=== PATIENT | female | born 1950 | race Caucasian/White ===

== ENCOUNTER 2016-04-01 08:06 | Inpatient (IN) | payer OTHER ==
[2016-04-01] MEDS ORDERED: CEFAZOLIN 1 GM VIAL ONE ×2 (08:26→14:20)
[2016-04-01] MEDS ORDERED: FENTANYL 100 MCG/2 ML VIAL IV PRN ×2 (08:33)
[2016-04-01] MEDS ORDERED: MEPERIDINE 25 MG/ML TUBEX IV PRN (08:33)
[2016-04-01] MEDS ORDERED: ONDANSETRON HCL 4 MG/2 ML VIAL IV PRN ×2 (08:33→14:59)
[2016-04-01] MEDS ORDERED: ONDANSETRON HCL 4 MG ODT TAB PO PRN (08:33)
[2016-04-01] MEDS ORDERED: LABETALOL 20 MG/4 ML SYRINGE IV PRN (08:33)
[2016-04-01] MEDS ORDERED: hydrALAZINE 20 MG/ML VIAL IV PRN (08:33)
[2016-04-01] MEDS ORDERED: HYDROmorphone 1 MG INJECTION IV PRN ×2 (08:33)
--- NOTE | 2016-04-01 09:40 | HIM.ANES ---
Anesthesia Evaluation & Plan Diagnoses: POSTMENOPAUSAL BLEEDING (04/01/16) Consented Procedure: TOTAL LAPAROSCOPIC HYSTERECTOMY AND BILATERAL SALPINGO- OOPHORECTOMY AND CYSTOSCOPY - Focused Review of Systems Cardiac History: Yes: Hx Hypertension, Hx Cardiac Disorders, Hx Congestive Heart Failure (PER PCP) HEENT: Yes: Hx Vision Problem (PRESCRIPTION ), Other HEENT Problems Hx Other HEENT Surgery: T&A 1956 Hx Other HEENT Problems: RHINNITIS SEASONAL ALLERGIES Respiratory: Yes: Hx Asthma (DOES NOT REQUIRE INHALERS), Hx Snoring Gastrointestinal: Yes: Hx Gastrointestinal Disorders, Hx Colonoscopy (NORMAL), Hx Endoscopy Neurological/Musculoskeletal: Yes: Hx Back Pain, Hx Numbness, Tingling, Weakness in Arms & Legs, Hx Neurological Disorders Other Neurological Problems: PERIPHERAL NEUROPATHY Psychological: Yes Hx Anxiety, Yes Hx Depression, Yes Hx Mental/Emotional Disorders Endocrine: Yes: Hx Hypothyroidism Blood/Autoimmune: Yes: Hx Anemia No: Hx AIDS, Hx Hepatitis (type) Smoking Status: Never smoker Hx Chest Xray (date): Yes (03/16/2016 NO ACUTE FINDINGS) Surgical History: Yes: T&A, Cholecystectomy (2008), Knee (LT TKA 2010, RT TKA) Other Surgical History: T&A 195610/12/2015 HYSTEROSCOPY D&C - Focused Physical Exam NPO since: 03/31/161999 Mallampati: Class II Thyromental Distance: Greater than 3 Neck: Full Range of Motion Dental: Removable Dental Work Cardiovascular/Chest: Normal Respiratory: Lungs clear Any problems with anesthesia, including nausea and vomiting?: No Any relatives with a history of Malignant Hyperthermia?: No Beta Anthony given (if appropriate): N/A Does the patient have a history of Motion Sickness-: No Other: Problem List Problem Status Onset Dehydration Acute Diarrhea Acute Nausea and vomiting Acute Allergies Allergy/AdvReac Type Severity Reaction Status Date / Time aspirin Allergy Hives* Verified 04/01/16 08:42 ibuprofen Allergy Hives* Verified 04/01/16 08:42 Sulfa (Sulfonamide AdvReac Unknown/See Verified 04/01/16 08:42 Antibiotics) Comments Home Medications Medication Instructions Recorded Last Taken Type Albuterol Sulfate [Albuterol 1 - 2 puff INH Q4H PRN 03/24/13 1 Week Ago History Sulfate Hfa] Amitriptyline HCl 25 mg PO HS 03/24/13 03/31/16 20:00 History Etodolac 400 mg PO DAILY 03/24/13 03/25/16 History Montelukast Sodium [Singulair] 10 mg PO DAILY 03/24/13 03/31/16 20:00 History Amlodipine [Norvasc] 5 mg PO DAILY 10/04/15 04/01/16 07:00 History Levothyroxine Sodium [Synthroid] 200 mcg PO DAILY 10/04/15 03/31/16 08:00 History Losartan Potassium 100 mg PO DAILY 10/04/15 04/01/16 07:00 History Cetirizine HCl [Allergy Relief] 10 mg PO BID 10/07/15 03/31/16 20:00 History Cyclosporine, Modified 75 mg PO BID 10/07/15 1 Week Ago History [Cyclosporine] Ferrous Sulfate [Iron] 325 mg PO DAILY 10/07/15 03/31/16 20:00 History Multivitamin [One Daily 1 each PO DAILY 10/07/15 03/31/16 20:00 History Multivitamin] Height and Weight Patient's height 5 ft 7 in Patient's weight 136.078 kg BMI 46.7 Vital Signs Temperature 97.1 F L 04/01/16 08:35 Pulse Rate 83 04/01/16 08:35 Respiratory Rate 18 04/01/16 08:35 Blood Pressure 184/81 H 04/01/16 08:35 Pulse Oxygen Saturation 95 04/01/16 08:35 - Anesthetic Plan Anesthesia Type: General ASA Class: 3 -: I have examined this patient and reviewed the medical record. The patient has been assessed prior to anesthesia. Risks and benefits of anesthesia and anesthetic technique options have been discussed and all questions answered. The patient accepts the risk and desires me to proceed with the planned anesthetic.
[2016-04-01] MEDS ORDERED: BUPIVACAINE 0.25% 30 ML VIAL ONE (10:02)
[2016-04-01] MEDS ORDERED: Famotidine 20 mg/50 ml RTU 20 MG/50 ML IVB IV ONE (10:13)
[2016-04-01] MEDS ORDERED: NEOSTIGMINE 1 MG/1 ML (1:1000) INJ 10 ML MDV IM ONE (10:23)
[2016-04-01] MEDS ORDERED: ALBUTEROL 6.7 GM MDI INH ONE (10:23)
[2016-04-01] MEDS ORDERED: ROCURONIUM 50 MG/5 ML VIAL IV ONE (10:23)
[2016-04-01] MEDS ORDERED: PROPOFOL 200 MG/20 ML VIAL IV ONE (10:23)
[2016-04-01] MEDS ORDERED: MIDAZOLAM 2 MG/2 ML VIAL IV ONE (10:23)
[2016-04-01] MEDS ORDERED: LIDOCAINE 100 MG PFS IV ONE (10:23)
[2016-04-01] MEDS ORDERED: DEXAMETHASONE 4 MG/ML VIAL IV ONE (10:23)
[2016-04-01] MEDS ORDERED: FENTANYL 100 MCG/2 ML VIAL IV ONE (10:23)
[2016-04-01] MEDS ORDERED: GLYCOPYRROLATE 1 MG VIAL IM ONE (10:23)
[2016-04-01] MEDS ORDERED: SUCCINYLCHOLINE 20 MG/1 ML INJ 10 ML MDV IV ONE (10:23)
[2016-04-01] MEDS ORDERED: ONDANSETRON HCL 4 MG/2 ML VIAL IV ONE (10:23)
[2016-04-01] MEDS ORDERED: HYDROmorphone 2 MG/ML VIAL IM ONE (10:23)
[2016-04-01] MEDS ORDERED: BISACODYL 10 MG SUPP PR PRN (14:59)
[2016-04-01] MEDS ORDERED: OXYCODONE HCL 5 MG TABLET PO PRN (14:59)
[2016-04-01] MEDS ORDERED: SIMETHICONE 80 MG TAB PO PRN (14:59)
[2016-04-01] MEDS ORDERED: HYDROmorphone 50 ML IV PRN (14:59)
[2016-04-01] MEDS ORDERED: Aluminum;Magnesium;Simethicone 30 ML UDC PO PRN (14:59)
[2016-04-01] MEDS ORDERED: MAGNESIUM HYDROXIDE 30 ML BOTTLE PO PRN (14:59)
[2016-04-01] MEDS ORDERED: PROMETHAZINE 25 MG/ML VIAL IV PRN (14:59)
[2016-04-01] MEDS ORDERED: DIPHENHYDRAMINE 50 MG/ML VIAL IV PRN (14:59)
--- NOTE | 2016-04-01 15:10 | DIRPT ---
CLINICAL DATA: OR patient with instrument miscount. EXAM: ABDOMEN - 1 VIEW COMPARISON: CT 11/09/2011. FINDINGS: AP view obtained portably. Examination is significantly limited by body habitus. There is incomplete penetration. Nasogastric tube is noted in the left upper quadrant. There are surgical clips in the right upper quadrant of the abdomen and in the right pelvis. No retained instruments are visualized. IMPRESSION: No retained instruments are demonstrated. Examination is limited by body habitus.- Electronically Signed By: Abdirizak Arriaza M.D. On: 04/01/2016 15:07
[2016-04-01] MEDS ORDERED: FENTANYL 100 MCG/2 ML VIAL ONE (15:28)
[2016-04-01] MEDS ORDERED: HYDROmorphone 50 ML IV ONE (15:45)
[2016-04-01 17:21] VITALS: BMI 47.0
--- NOTE | 2016-04-01 17:50 | SC.ANESPOS ---
Post-Anesthesia Note LOC: Fully Awake Post-Anesthesia Assessment: Awake, Returned to Baseline, Hemodynamically Stable , Pain Control Adequate Phase I & II Recovery Complete: Yes Apparent Anesthesia Complication: No : N PACU Discharge Time: 16:10 - Vital Signs Blood Pressure: 171/72 Pulse: 97 Resp Rate: 20 O2 Sat: 96 Temp: 97.6 F - Comments Anesthesia Discharge Time Report Time 16:10
[2016-04-01] MEDS: LR 1,000 ML IV SCH (19:29)
--- NOTE | 2016-04-01 21:14 | HIMOPNOTE ---
DATE OF PROCEDURE: 04/01/16 PRE/POSTOP DIAGNOSIS: Postmenopausal bleeding IF CANCER: CLINICAL STAGE: T [] N [] M []; Group Stage:[] PROCEDURE: Laparoscopy, total abdominal hysterectomy, bilateral salpingo-oophorectomy, cystoscopy FINDINGS: 8 week sized uterus normal appearing tubes and ovaries bilateral ureteral jets SPECIMEN REMOVED: uterus, cervix, bilateral tubes and ovaries EBL: 600 TYPE OF ANESTHESIA: general COMPLICATIONS: difficult visualization leading to conversion of laparoscopy to an open abdominal approach NAME OF SURGEON/ASSISTANTS: Jacqueline Martinez DO
[2016-04-02] MEDS: Docusate Sodium 100 MG CAP PO SCH ×3 (00:14→21:19)
[2016-04-02] MEDS: LR 1,000 ML IV SCH (03:10)
[2016-04-02] MEDS ORDERED: SODIUM CHLORIDE 0.9% 3 ML FLUSH FLUSH PRN (11:34)
[2016-04-02] MEDS ORDERED: ACETAMINOPHEN 325 MG/TAB TABLET PO PRN (11:36)
--- NOTE | 2016-04-02 11:47 | OBGYNPROG ---
- Subjective Hospital Day #: 2 Post Op Day: 1 Cheif Complaint: s/p laparoscopy, JOSEPH, BSO, cysto Reports: Gas Pains, Vomitting (at 0500. tolerated liquid diet since then), Voiding Freely. Denies: Passing Flatus, Shortness of Breath, Chest Pain, Headache, Jitteriness, Palpitations Pain: Reports: Well Managed - Objective Vital Signs: H&H Results 04/02/16 05:50 Hgb 11.4 L D Hct 34.5 L Vital Signs - 24 hr 04/01/16 04/01/16 04/01/16 14:57 15:02 15:07 Temperature 97.8 F Pulse Rate 78 80 82 Respiratory 10 10 16 Rate Blood Pressure 103/54 L 114/57 L 119/59 L Pulse Oxygen 78 L 90 L 98 Saturation 04/01/16 04/01/16 04/01/16 15:15 15:30 15:45 Temperature 97.9 F Pulse Rate 88 86 93 Respiratory 16 16 16 Rate Blood Pressure 132/62 140/61 158/67 Pulse Oxygen 95 97 95 Saturation 04/01/16 04/01/16 04/01/16 16:00 16:11 16:40 Temperature 97.6 F Pulse Rate 96 92 95 Respiratory 16 18 20 Rate Blood Pressure 160/71 143/69 173/70 Pulse Oxygen 92 94 98 Saturation 04/01/16 04/01/16 04/01/16 16:53 17:08 17:48 Temperature Pulse Rate 99 97 Respiratory 20 20 20 Rate Blood Pressure 168/69 171/72 Pulse Oxygen 98 96 Saturation 04/01/16 04/01/16 04/01/16 17:50 18:26 20:00 Temperature 97.6 F Pulse Rate 97 105 Respiratory 20 20 18 Rate Blood Pressure 171/72 177/77 Pulse Oxygen 96 96 Saturation 04/01/16 04/01/16 04/02/16 22:00 22:03 00:00 Temperature 98.2 F Pulse Rate 102 Respiratory 20 18 20 Rate Blood Pressure 136/63 Pulse Oxygen Saturation 04/02/16 04/02/16 04/02/16 01:56 02:00 04:00 Temperature 98.3 F Pulse Rate 103 Respiratory 18 20 20 Rate Blood Pressure 149/73 Pulse Oxygen Saturation 04/02/16 04/02/16 04/02/16 06:00 06:36 08:00 Temperature 99.4 F Pulse Rate 99 Respiratory 20 20 18 Rate Blood Pressure 145/64 Pulse Oxygen 96 Saturation 04/02/16 04/02/16 10:00 10:10 Temperature 98.0 F Pulse Rate 96 Respiratory 20 20 Rate Blood Pressure 151/72 Pulse Oxygen Saturation GENERAL: Alert, Oriented, No Acute Distress CARDIOVASCULAR/CHEST: Normal RESPIRATORY: Normal - CTA ABDOMEN: Bowel Sounds Present. negative: Guarding, Rebound Tenderness, Rigidity INCISION: Ecchymotic, Dermabond Intact, Incision Clean/Dry/Intact EXTERMITIES: Moves All Extremeties OBGYN Progress Note - ASSESSMENT (1) S/P laparoscopy Status: Acute Code(s): Z98.890 - OTHER SPECIFIED POSTPROCEDURAL STATES (2) S/P JOSEPH-BSO Status: Acute Code(s): Z90.710 - ACQUIRED ABSENCE OF BOTH CERVIX AND UTERUS; Z90.722 - ACQUIRED ABSENCE OF OVARIES, BILATERAL; Z90.79 - ACQUIRED ABSENCE OF OTHER GENITAL ORGAN(S) (3) S/P cystoscopy Status: Acute Code(s): Z98.890 - OTHER SPECIFIED POSTPROCEDURAL STATES - PLAN Routine Post Op Care, Advance Diet (when passing flatus), Ambulate, Monitor Labs (repeat h and h at 12 noon), Start PO Meds, Supportive Care
[2016-04-02] MEDS ORDERED: SODIUM CHLORIDE 0.9% 3 ML FLUSH FLUSH SCH (12:00)
[2016-04-02] MEDS: AMLODIPINE 5 MG TAB PO SCH (12:39)
[2016-04-02] MEDS: LOSARTAN POTASSIUM 50 MG TAB PO SCH (12:39)
[2016-04-02] MEDS: CETIRIZINE HCL 10 MG TAB PO SCH (12:39)
[2016-04-02] MEDS: LEVOTHYROXINE 200 MCG (0.2 MG) TAB PO SCH (12:39)
[2016-04-02] MEDS: OXYCODONE HCL 5 MG TABLET PO PRN ×2 (14:37→19:46)
[2016-04-02] MEDS: SODIUM CHLORIDE 0.9% 3 ML FLUSH FLUSH SCH (17:25)
[2016-04-02] MEDS ORDERED: CETIRIZINE HCL 10 MG TAB PO SCH (21:00)
[2016-04-02] MEDS ORDERED: MONTELUKAST SODIUM 10 MG TAB PO SCH (21:00)
[2016-04-03] MEDS: OXYCODONE HCL 5 MG TABLET PO PRN ×3 (00:09→09:03)
[2016-04-03 06:11] VITALS: BP 125/64; PULSE 91; TEMP 97.8
[2016-04-03] MEDS: SODIUM CHLORIDE 0.9% 3 ML FLUSH FLUSH SCH (07:19)
[2016-04-03] MEDS: LOSARTAN POTASSIUM 50 MG TAB PO SCH (08:02)
[2016-04-03] MEDS: AMLODIPINE 5 MG TAB PO SCH (08:03)
[2016-04-03] MEDS: LEVOTHYROXINE 200 MCG (0.2 MG) TAB PO SCH (08:03)
[2016-04-03] MEDS: CETIRIZINE HCL 10 MG TAB PO SCH (08:03)
[2016-04-03] MEDS: Docusate Sodium 100 MG CAP PO SCH (08:03)
--- NOTE | 2016-04-03 08:28 | OBGYNPROG ---
- Subjective Hospital Day #: 3 Post Op Day: 2 Cheif Complaint: s/p laparoscopy, JOSEPH, BSO, cysto Reports: Tolerating Regular Diet, Passing Flatus, Voiding Freely. Denies: Complaints, Vomitting, Shortness of Breath, Chest Pain, Diarrhea, Headache, Palpitations Pain: Reports: Well Managed - Objective Vital Signs: H&H Results 04/02/16 04/02/16 12:00 05:50 Hgb 11.7 L 11.4 L D Hct 35.8 L 34.5 L Last Vital Signs Temp 97.8 F 04/03/16 06:10 Pulse 91 04/03/16 06:10 Resp 16 04/03/16 06:10 BP 125/64 04/03/16 06:10 Pulse Ox 96 04/02/16 06:36 GENERAL: Alert, Oriented, No Acute Distress CARDIOVASCULAR/CHEST: Normal RESPIRATORY: Normal - CTA ABDOMEN: Bowel Sounds Present, Non-Tender, Soft INCISION: Ecchymotic, Dermabond Intact, Incision Clean/Dry/Intact EXTERMITIES: Moves All Extremeties OBGYN Progress Note - ASSESSMENT (1) S/P laparoscopy Status: Acute Code(s): Z98.890 - OTHER SPECIFIED POSTPROCEDURAL STATES (2) S/P JOSEPH-BSO Status: Acute Code(s): Z90.710 - ACQUIRED ABSENCE OF BOTH CERVIX AND UTERUS; Z90.722 - ACQUIRED ABSENCE OF OVARIES, BILATERAL; Z90.79 - ACQUIRED ABSENCE OF OTHER GENITAL ORGAN(S) (3) S/P cystoscopy Status: Acute Code(s): Z98.890 - OTHER SPECIFIED POSTPROCEDURAL STATES - PLAN Routine Post Op Care, Discharge (instructions given), Supportive Care
--- NOTE | 2016-04-03 17:14 | PCM.DCS92 ---
- Primary/Secondary Discharge Diagnoses (1) S/P laparoscopy Acute Z98.890 - OTHER SPECIFIED POSTPROCEDURAL STATES (2) S/P JOSEHP-BSO Acute Z90.710 - ACQUIRED ABSENCE OF BOTH CERVIX AND UTERUS; Z90.722 - ACQUIRED ABSENCE OF OVARIES, BILATERAL; Z90.79 - ACQUIRED ABSENCE OF OTHER GENITAL ORGAN(S) (3) S/P cystoscopy Acute Z98.890 - OTHER SPECIFIED POSTPROCEDURAL STATES - HOSPITAL COURSE Patient was admitted on 04/01/16 for scheduled surgery due to recurrent postmenopausal bleeding. She underwent an attempted laparoscopic hysterectomy that was converted to an open abdominal hysterectomy, BSO, and cysto due to lack of visualization. She did well postoperatively and was discharged home in stable condition on POD#2, voiding freely, tolerating regular diet, passing flatus, and with her pain controlled on PO pain meds. She was given instructions and told to follow up at [facility] in 2 weeks/ PROCEDURE: Laparoscopy, total abdominal hysterectomy, bilateral salpingo-oophorectomy, cystoscopy - DISCHARGE INSTRUCTIONS Discharge Disposition: Home Discharge Condition: Good Cognitive Discharge Status: Unimpaired Fuctional Discharge Status: Independent Patient Leaving with Prescriptions?: Yes Home Medications/ New Prescriptions: New Cephalexin Monohydrate [Keflex] 500 mg PO BID #20 cap Oxycodone Immediate Release [Oxy-Ir] 1 - 2 tab PO Q6H PRN #30 tab PRN Reason: Pain No Action Albuterol Sulfate [Albuterol Sulfate Hfa] 1 - 2 puff INH Q4H PRN PRN Reason: Shortness Of Breath Montelukast Sodium [Singulair] 10 mg PO DAILY Amitriptyline HCl 25 mg PO HS Etodolac 400 mg PO DAILY Levothyroxine Sodium [Synthroid] 200 mcg PO DAILY Amlodipine [Norvasc] 5 mg PO DAILY Losartan Potassium 100 mg PO DAILY Cyclosporine, Modified [Cyclosporine] 75 mg PO BID Cetirizine HCl [Allergy Relief] 10 mg PO BID Multivitamin [One Daily Multivitamin] 1 each PO DAILY Ferrous Sulfate [Iron] 325 mg PO DAILY Referrals: Jacqueline Martinez DO [Staff Physician] - Two Weeks - Diet Diet at Discharge: Regular - Activity Activity: No Heavy Lifting Do not lift more than_pounds: 15 For:: 6 WEEKS No Driving for: Until After Post op Follow-up Appointment Other Activity Instructions: NO SEXUAL ACTIVITY OR TAMPONS FOR 6 WEEKS - Instructions Call Physician for: Sudden/Sever Chest Pain, Pain/Redness in Calf/Leg, Temperature Above 100.4, Drainiage from Wound Additional Instructions: Keep follow up appointment as scheduled in the office - Incision Incision, Lacerations, or Tears: Yes Dressing/Site Care (if applicable): WASH DAILY WITH SOAP AND WATER, PAT DRY. CALL THE OFFICE FOR RED, GREEN OR YELLOW DRAINAGE - DC Summary Notes Discharge Medications: *See "Discharge Medication List" for a complete list of Home Medications and Discharge Medications.* Obstetric Hospital Course - Admitting Diagnosis Admission Date: 04/01/16 Admission time: 16:05
--- NOTE | 2016-04-03 17:36 | HIMOPRPT ---
DATE OF PROCEDURE: 04/01/16 PREOPERATIVE DIAGNOSIS: Postmenopausal bleeding POSTOPERATIVE DIAGNOSIS: Postmenopausal bleeding PROCEDURE: Laparoscopy, total abdominal hysterectomy, bilateral salpingo-oophorectomy, cystoscopy SURGEON: Jacqueline Martinez DO ANESTHESIA: general ESTIMATED BLOOD LOSS: 600 COMPLICATIONS: difficult visualization leading to conversion of laparoscopy to an open abdominal approach SPECIMENS: uterus, cervix, bilateral tubes and ovaries FINDIN week sized uterus normal appearing tubes and ovaries bilateral ureteral jets PROCEDURE IN DETAIL: The patient was taken to the operating room and placed on the operating room table in dorsal supine position. General anesthesia was then administered. She was then placed in low lithotomy position in Yellowfin stirrups with her arms tucked at her side. The patient was then prepped and draped in sterile fashion. The time out was then called. A Hidalgo catheter was then placed without difficulty returning clear yellow urine. The lower edge of the umbilicus was injected with 0.25% Sensorcaine. A small vertical incision was made and a 5mm size trocar was placed under direct visualization. The abdomen was then infused with CO2. The patient was placed in deep Trendelenburg position. In the left lower quadrant, 3 fingerbreadths above the anterior superior iliac spine lateral to the epigastric vessels, the abdominal wall was injected with 0.25% Sensorcaine. An incision was made and a 10mm trocar was applied under direct visualization. The same procedure was used to place a 5mm trocar in the right lower quadrant. Attempts were made to sweep the bowel out of the pelvis in order to visualize the uterus however, the intestines repetitively moved back into the pelvis. A 5mm trocar was then placed under direct visualization between the umbilical and RLQ port after .25% Sensorcaine was injected into the abdominal wall. A liver retractor was then used through this port to try to keep the intestines out of the pelvis. This only worked temporarily and the liver retractor was readjusted numerous times. The uterus was then elevated. The pelvis was inspected and the above findings noted. The left infundibulopelvic ligament was transected with the Wilberto Harmonic on minimum power. The mesosalpinx was taken down to the level of the round ligament which was transected as well. The bladder flap was then developed anteriorly. The left uterine artery pedicle was transected with WILBERTO on minimum power. Several bites were taken medial and distal to this of the parametrial tissue down to the level of the internal cervical os. Once this was completed on the left side, the same procedure was carried out on the right side. However, bleeding remained at the level of the uterine artery and after multiple attempts were unsuccessfully made to bring about hemostasis with the harmonic, a clip insulation engineman was inserted through the RLQ port and clips were then placed to bring about hemostasis. The bladder flap was further developed gently using the WILBERTO and a peanut applicator. A wet sponge stick was then placed in the vagina. The anterior fornix was distended and entered with the back blade of the WILBERTO harmonic on max power. Visualization was impaired due to the bladder positioning and intestines again falling into the pelvis. The posterior fornix was entered in a similar fashion. A wet lap tape was placed in the vagina to maintain the pneumoperitoneum. After the liver retractor was readjusted multiple times, part of the left uterosacral-cardinal ligament complex was taken down with the WILBERTO harmonic on max power and attempts were made to take down the right uterosacral- cardinal ligament complex. However, visualization was lacking again and the procedure was deemed to be unsafe to continue laparoscopically and the decision was made to proceed with an open abdominal approach. Pneumoperitoneum was then evacuated. the ports were then removed. The abdominal incisions were then closed using 4-0 monocryl in a subcuticular fashion as the operating room staff prepared instruments to open. A Pfannenstiel skin incision was made with a scalpel, carried through subcutaneous tissue to the underlying layer of fascia. The fascia was incised in the midline and incision extended laterally using Metzenbaum scissors. Next, 2 Ted clamps were used to grasp the inferior aspect of fascial incision, which was tented up and the rectus muscles dissected off sharply with the Valladares scissors. Next, in a similar manner, 2 Ted clamps were used to grasp the superior aspect of fascial incision, which was tented up, and the rectus muscles dissected off sharply with the Valladares scissors. Next, the rectus were divided in the midline. Peritoneum identified, entered bluntly, and incision extended both superiorly and inferiorly with good visualization of bladder. The bowel was packed with moist lap sponges. A Poli retractor was then placed to try to help with visualization. Visualization was still impaired due to body habitus and the depth of the pelvis and the decision was made to extend the abdominal incision laterally on both sides about 2cm. The uterus was elevated and long Cyndi clamps were placed on the uterine cornua. The laps were readjusted multiple times and the Poli retractor again placed to aid with visualization. Manual explaoration allowed Seppelin clamps to be placed along the colpotomies and across the vaginal fornix. Using scissors, the the specimen was removed. The vaginal cuff was closed with [id number] vicryl sutures. The pelvis was then irrigated with warm water. Any small bleeders were cauterized using the Bovie device. Again the pelvis was irrigated and excellent hemostasis was noted. All tagged sutures were then cut and released. Laps were all removed from the abdominal cavity. Next, the muscle and peritoneum were reapproximated in one layer using #2-0 Monocryl in a running fashion. The fascia was reapproximated using #0 Vicryl in a running fashion. The subcutaneous tissue was reapproximated using #2-0 Vicryl in a running fashion and the skin was reapproximated using #3-0 Monocryl in a subcuticular fashion. Dermabond was placed. At this point the Hidalgo catheter was removed. The 5mm scope was used to perform cystoscopy and bilateral ureteral jets were noted and the bladder dome appeared normal. The Hidalgo catheter was then replaced to straight drainage. The patient tolerated the procedure well. The instrument count was incorrect and an xray confirmed lack of instruments left within the abdominal cavity. The patient was transported to recovery in stable condition.
== END 2016-04-03 10:24 | disposition home or self-care (01) | DRG 742 ==
LOC: SDC 08:06 → MASU 16:20
PROVIDERS: ADMIT Obstetrics & Gynecology; ATTEND Obstetrics & Gynecology
PROC: 0UJD4ZZ Inspection of Uterus and Cervix, Percutaneous Endoscopic Approach (ICD-10-PCS; 2016-04-01)
PROC: 0UT20ZZ Resection of Bilateral Ovaries, Open Approach (ICD-10-PCS; 2016-04-01)
PROC: 0UT70ZZ Resection of Bilateral Fallopian Tubes, Open Approach (ICD-10-PCS; 2016-04-01)
PROC: 0UT90ZZ Resection of Uterus, Open Approach (ICD-10-PCS; principal; 2016-04-01 10:55)
DX: N95.0 Postmenopausal bleeding (principal); Z68.42 Body mass index [BMI] 45.0-49.9, adult; I10 Essential (primary) hypertension; E66.01 Morbid (severe) obesity due to excess calories; Z88.8 Allergy status to other drugs, medicaments and biological substances; Z79.899 Other long term (current) drug therapy; E06.3 Autoimmune thyroiditis; J45.20 Mild intermittent asthma, uncomplicated; N84.0 Polyp of corpus uteri
CPT/HCPCS: 74000; 85014; 85018; 86850; 86900; 86901; 96360; 96361; 96374; G0237; J0330; J0690; J1100; J1170; J2001; J2250; J2405; J2710; J3010; J3490; S0020; S0028